=== PATIENT | male | born 1950 | race Caucasian/White ===

== ENCOUNTER 2016-12-23 09:28 | Emergency (ER) | payer OTHER ==
[2016-12-23 09:35] VITALS: BP 120/77
--- NOTE | 2016-12-23 09:59 | ED Physician Documentation ---
PD HPI UPPER EXT INJURY - Stated complaint Stated Complaint: L SHOULDER INJURY - Chief complaint Chief Complaint: Ext Problem - History obtained from History obtained from: Patient - History of Present Illness Location: Left, Shoulder Type of injury: Fall Where injury occurred: Home Timing - onset: Yesterday Timing - details: Abrupt onset, Still present Worsened by: Moving, Palpating Associated symptoms: No: Weakness, Numbness, Swelling Contributing factors: No: Prior ortho surgery Similar symptoms before: Has not had sx before Recently seen: Not recently seen Review of Systems Skin: denies: Rash, Lesions, Abrasion (s), Laceration (s) Musculoskeletal: denies: Neck pain, Back pain Neurologic: denies: Focal weakness, Numbness PD PAST MEDICAL HISTORY - Past Medical History Cardiovascular: High cholesterol Musculoskeletal: None - Past Surgical History Past Surgical History: No - Present Medications Home Medications: Ambulatory Orders Medication Instructions Recorded Confirmed Meds For Sleep 12/23/16 - Allergies Allergies/Adverse Reactions: Allergies Allergy/AdvReac Type Severity Reaction Status Date / Time No Known Drug Allergies Allergy Verified 06/10/15 11:33 - Social History Does the pt smoke?: No Smoking Status: Never smoker Does the pt drink ETOH?: No Does the pt have substance abuse?: No - Immunizations Immunizations are current?: Yes - POLST Patient has POLST: No PD ED PE NORMAL - Vitals Vital signs reviewed: Yes - General General: Alert and oriented X 3, No acute distress, Well developed/nourished - Neck Neck: Supple, no meningeal sign, No bony TTP - Cardiac Cardiac: RRR, No murmur - Respiratory Respiratory: Clear bilaterally - Derm Derm: Normal color, Warm and dry - Extremities Extremities: Other (tender left shoulder at AC area mainly without defomity. Passive stress has some clunkiness concerning for rotator duff injury. Pain with some rotational movements but good strength. ). No: Normal ROM s pain ( pain left shoulder with lifting more than about 30 degrees. ) - Neuro Neuro: No motor deficit, No sensory deficit Results - Vitals Vitals: Vital Signs - 24 hr 12/23/16 09:32 Temperature 36.2 C L Heart Rate 58 L Respiratory 16 Rate Blood Pressure 120/77 O2 Saturation 96 Oxygen O2 Source Room air - Rads (name of study) left shoulder Radiology: Prelim report reviewed, EMP read contemporaneously (no fractures. ) PD MEDICAL DECISION MAKING - ED course Complexity details: reviewed results, considered differential, d/w patient Departure - Departure Disposition: 01 Home, Self Care Clinical Impression: Fall from slip, trip, or stumble Qualifiers: Encounter type: initial encounter Qualified Code(s): W01.0XXA - Fall on same level from slipping, tripping and stumbling without subsequent striking against object, initial encounter Left shoulder strain Qualifiers: Encounter type: initial encounter Qualified Code(s): S46.912A - Strain of unspecified muscle, fascia and tendon at shoulder and upper arm level, left arm , initial encounter Injury of left rotator cuff Qualifiers: Encounter type: initial encounter Qualified Code(s): S46.002A - Unspecified injury of muscle(s) and tendon(s) of the rotator cuff of left shoulder, initial encounter Condition: Stable Record reviewed to determine appropriate education?: Yes Instructions: Rotator Cuff Injury Follow-Up: Jorge Smiley MD [Provider Admit Priv/Credential] - Comments: Limited use of the left shoulder with no overhead reaching, push pull, lifting for at least a week. Light use of the arm at mid level is okay. Gentle range of motion of the shoulder is good to prevent "freezing up" of the shoulder ( adhesions). Tylenol or ibuprofen if needed for pain. Consider using ibuprofen 2-3 tablets twice daily for the next week as an anti-inflammatory and add Tylenol to that if needed for pain. Follow-up with your primary care or orthopedics in about a week for recheck to see if it seems like there is any rotator cuff tear or injury. There are no obvious fractures on x-ray. Discharge Date/Time: 12/23/16 10:50
--- NOTE | 2016-12-23 11:01 | XRAY Preliminary Report ---
Exam: XR SHOULDER 3 VIEW LT IMPRESSION: 1. No acute fracture or dislocation. 2. 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 [facility] SITE ID: [id number]
--- NOTE | 2016-12-23 11:04 | XRAY Report ---
EXAM: LEFT SHOULDER RADIOGRAPHY EXAM DATE: 12/23/2016 10:00 AM. CLINICAL HISTORY: Fell onto a wood pile with left shoulder pain. COMPARISON: None. TECHNIQUE: 3 views. FINDINGS: Bones: Normal. No fracture or bone lesion. Joints: Mild degenerative joint disease of the glenohumeral joint with inferior mild joint space narr owing and early osteophyte formation. Mild acromioclavicular degenerative joint disease as well with small osteophytes. Soft tissues: The visualized hemithorax is unremarkable. No soft tissue swelling. IMPRESSION: 1. No acute fracture or dislocation. 2. 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 [facility] Referring Provider Line: [phone] SITE ID: [id number]
== END 2016-12-23 10:50 | disposition home or self-care (01) ==
LOC: ED 09:28
DX: S46.912A Strain of unspecified muscle, fascia and tendon at shoulder and upper arm level, left arm, initial encounter (principal); S46.002A Unspecified injury of muscle(s) and tendon(s) of the rotator cuff of left shoulder, initial encounter; W01.0XXA Fall on same level from slipping, tripping and stumbling without subsequent striking against object, initial encounter; Y93.89 Activity, other specified; Y92.009 Unspecified place in unspecified non-institutional (private) residence as the place of occurrence of the external cause; E78.00 Pure hypercholesterolemia, unspecified
CPT/HCPCS: 99283

== ENCOUNTER 2017-05-11 17:26 | Emergency (ER) | payer OTHER ==
[2017-05-11 18:28] LABS: BASOPHILS % (AUTO) 0.5 %; EOSINOPHILS # (AUTO) 0.3 10^3/uL (0.0-0.7); EOSINOPHILS % (AUTO) 3.3 %; HGB - HEMOGLOBIN 13.7 g/dL (14.0-18.0); LYMPHOCYTES # (AUTO) 2.8 10^3/uL (1.5-3.5); LYMPHOCYTES % (AUTO) 32.5 %; MEAN CORPUSCULAR HGB CONC 33.4 g/dL (32.0-36.0); MEAN CORPUSCULAR VOLUME 93.1 fL (80.0-94.0); MEAN PLATELET VOLUME 8.3 fL (7.4-11.4); MONOCYTES # (AUTO) 0.9 10^3/uL (0.0-1.0); MONOCYTES % (AUTO) 10.7 %; NEUTROPHILS # (AUTO) 4.6 10^3/uL (1.5-6.6); PLT - PLATELET COUNT 249 10^3/uL (130-450); RED CELL DISTRIBUTION WIDTH 12.7 % (12.0-15.0); WHITE BLOOD COUNT 8.6 x10^3/uL (4.8-10.8)
[2017-05-11 18:36] LABS: ALBUMIN 4.1 g/dL (3.2-5.5); ALBUMIN/GLOBULIN RATIO 1.3 (1.0-2.2); BILIRUBIN,TOTAL 0.5 mg/dL (0.2-1.0); CALCIUM 8.9 mg/dL (8.5-10.3); CREATININE 1.1 mg/dL (0.6-1.2); TOTAL PROTEIN 7.2 g/dL (6.7-8.2)
--- NOTE | 2017-05-11 19:00 | XRAY Report ---
EXAM: CHEST RADIOGRAPHY EXAM DATE: 05/11/2017 06:38 PM. CLINICAL HISTORY: Chest pain. COMPARISON: None. TECHNIQUE: 1 view. FINDINGS: Lungs/Pleura: No focal opacities evident. No pleural effusion. No pneumothorax. Mediastinum: Within exam limitations, the cardiomediastinal contour is normal. Other: Post surgical changes left shoulder. IMPRESSION: No acute findings. [facility] Referring Provider Line: [phone] SITE ID: [id number]
--- NOTE | 2017-05-11 19:08 | ED Physician Documentation ---
PD HPI CHEST PAIN - Stated complaint Stated Complaint: CP - Chief complaint Chief Complaint: Cardiac - History obtained from History obtained from: Patient - History of Present Illness Timing - onset: How many hours ago (5) Timing - onset during: Light activity (walking) Timing - duration: Minutes (30) Timing - details: Abrupt onset Pain level max: 6 Pain level now: 2 Location: Right chest Radiation: Right upper extremity Improved by: Rest Worsened by: Exertion Associated symptoms: No: Shortness of air, Diaphoresis, Nausea, Vomiting, Feeling faint / dizzy, General Weakness, Palpitations, Cough Similar symptoms before: Has not had sx before - Additional information Additional information: also occured last week while on a run. Today while walking. Lasts 30-45 mins at a time. Took baby asa today. doesn't smoke. no HTN. +hyperlipidemia Review of Systems Ten Systems: 10 systems reviewed and negative Constitutional: denies: Fever, Chills Nose: denies: Rhinorrhea / runny nose, Congestion Throat: denies: Sore throat Cardiac: denies: Palpitations Respiratory: denies: Cough, Wheezing : denies: Dysuria Skin: denies: Rash Musculoskeletal: denies: Neck pain, Back pain Neurologic: denies: Focal weakness, Numbness, Headache PD PAST MEDICAL HISTORY - Past Medical History Past Medical History: Yes Cardiovascular: High cholesterol Musculoskeletal: None - Past Surgical History Past Surgical History: No - Present Medications Home Medications: Ambulatory Orders Medication Instructions Recorded Confirmed Meds For Sleep 12/23/16 - Allergies Allergies/Adverse Reactions: Allergies Allergy/AdvReac Type Severity Reaction Status Date / Time No Known Drug Allergies Allergy Verified 06/10/15 11:33 - Social History Does the pt smoke?: No Smoking Status: Never smoker Does the pt drink ETOH?: No Does the pt have substance abuse?: No - Immunizations Immunizations are current?: Yes - POLST Patient has POLST: No PD ED PE NORMAL - Vitals Vital signs reviewed: Yes - General General: Alert and oriented X 3, No acute distress, Well developed/nourished - HEENT HEENT: PERRL, Moist mucous membranes - Neck Neck: Supple, no meningeal sign, No JVD, No bruit - Cardiac Cardiac: RRR, Strong equal pulses - Respiratory Respiratory: No respiratory distress, Clear bilaterally - Abdomen Abdomen: Soft, Non tender, Non distended - Derm Derm: Warm and dry, No rash - Extremities Extremities: No edema, No calf tenderness / cord - Neuro Neuro: Alert and oriented X 3 - Psych Psych: Normal mood, Normal affect Results - Vitals Vitals: Vital Signs - 24 hr 05/11/17 05/11/17 05/11/17 17:39 19:10 19:39 Temperature 36.5 C Heart Rate 68 63 65 Respiratory 18 15 14 Rate Blood Pressure 145/79 H 134/84 H 125/79 O2 Saturation 98 96 96 05/11/17 05/11/17 20:13 20:43 Temperature Heart Rate 70 74 Respiratory 16 16 Rate Blood Pressure 124/84 H 109/76 O2 Saturation 95 93 Oxygen O2 Source Room air - EKG (time done) 1734 Rate: Rate (enter#) (65) Rhythm: NSR [place]: Normal Intervals: Normal OR QRS: Normal Ischemia: Normal ST segments Computer interpretation: Agree with computer 2034 Rate: Rate (enter#) (68) Rhythm: NSR [place]: Normal Intervals: Normal OR QRS: Normal Ischemia: Normal ST segments Computer interpretation: Agree with computer - Labs Labs: Laboratory Tests 05/11/17 05/11/17 05/11/17 18:19 18:19 18:19 WBC 8.6 RBC 4.40 L Hgb 13.7 L Hct 40.9 L MCV 93.1 MCH 31.0 MCHC 33.4 RDW 12.7 Plt Count 249 MPV 8.3 Neut # 4.6 Lymph # 2.8 [place] # 0.9 Eos # 0.3 Baso # 0.0 Absolute Nucleated RBC 0.01 Nucleated RBC % 0.1 Sodium 139 Potassium 4.5 Chloride 105 Carbon Dioxide 25 Anion Gap 9.0 BUN 20 Creatinine 1.1 Estimated GFR (MDRD) 67 L Glucose 94 Calcium 8.9 Total Bilirubin 0.5 AST 22 ALT 24 Alkaline Phosphatase 67 Troponin I 0.35 Total Protein 7.2 Albumin 4.1 Globulin 3.1 Albumin/Globulin Ratio 1.3 Lipase 27 - Rads (name of study) cxr Radiology: Prelim report reviewed, EMP read contemporaneously, See rad report ( normal) PD MEDICAL DECISION MAKING - ED course Complexity details: reviewed results, re-evaluated patient, considered differential (No ST elevation HI, no aortic dissection, no PE, no tension pneumothorax, no aortic aneurysm), d/w patient, d/w family ED course: Patient is a 67-year-old gentleman who presents to the emergency department with a story concerning for accelerating angina, used to occur with running, now occurs with light exertion. Not even a brisk walk today. His troponin is mildly elevated. Started on a heparin drip and will treat as a an STEMI. Discussed the case with Dr. Mckeon 1919, hospitalist at [facility] who graciously accepts in transfer. Patient was also treated with aspirin here. 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 This document was made in part using voice recognition software. While efforts are made to proofread this document, sound alike and grammatical errors may occur. Departure - Departure Disposition: 02 Transfer Acute Care Hosp Clinical Impression: NSTEMI (non-ST elevated myocardial infarction) Condition: Stable Discharge Date/Time: 05/11/17 20:59
[2017-05-11] MEDS ORDERED: ASPIRIN CHEW 81 MG TABLET PO STA (19:14)
[2017-05-11] MEDS ORDERED: HEPARIN 5,000 UNIT/ML VIAL IVP STA (19:23)
[2017-05-11] MEDS ORDERED: HEPARIN 25000UNITS/500ML (D5W) 25,000 UNIT/500 ML BAG IV STA (19:23)
[2017-05-11] MEDS ORDERED: NITROGLYCERIN SL 0.4 MG TABLET SL STA (20:30)
[2017-05-11 20:49] VITALS: BP 109/76
== END 2017-05-11 20:59 | disposition short-term general hospital (02) ==
LOC: ED 17:26
DX: I21.4 Non-ST elevation (NSTEMI) myocardial infarction (principal); E78.00 Pure hypercholesterolemia, unspecified
CPT/HCPCS: 36415; 71045; 80053; 83690; 84484; 85025; 93005; 96365; 96376; 99284; 99285; A9270

== ENCOUNTER 2017-05-11 20:59 | Outpatient (CLI) | payer OTHER | END 2017-05-11 21:00 | disposition short-term general hospital (02) | LOC: EMS 20:59 | PROVIDERS: ATTEND Surgery | DX: I21.4 Non-ST elevation (NSTEMI) myocardial infarction (principal) | CPT/HCPCS: A0425; A0426 ==

== ENCOUNTER 2019-11-09 19:37 | Emergency (ER) | payer OTHER ==
[2019-11-09] MEDS ORDERED: TETANUS/DIPHTHERIA/PERTUSSIS 0.5 ML SYRINGE IM ONE (20:01)
[2019-11-09] MEDS ORDERED: LIDOCAINE-EPINEPH-TETRACAINE 3 ML SYRINGE TOP STA (20:01)
[2019-11-09] MEDS ORDERED: HYDROcod/ACETAM 5/325 MG TABLET PO STA (20:01)
--- NOTE | 2019-11-09 20:33 | ED Physician Documentation ---
PD HPI HEAD INJURY - Stated complaint Stated Complaint: GLF - Chief complaint Chief Complaint: Trauma Hd/Nk - History obtained from History obtained from: Patient, EMS - History of Present Illness Mechanism of head injury: Fell Where head injury occurred: Home Timing - onset: How many minutes ago (20) Pain level max: 6 Pain level now: 6 Location of injury: Right, Front Quality of pain: Pain, Aching, Dull Associated symptoms: Neck pain (states feels sore and stiff.). No: LOC, AMS, Amnesia, Nausea / vomiting Symptoms improve with: Rest Symptoms worsen with: Palpation, Movement Contributing factors: No: Anticoagulated, Intoxicated Recently seen: Not recently seen - Additional information Additional information: Patient states that he was getting off his tractor today when he tripped and fell, landing on the right side of his face, injuring his right hand and head. Has a history of a neck fracture in the past that was surgically repaired. No numbness or tingling. Patient is right-handed. Unsure last tetanus shot Review of Systems Ten Systems: 10 systems reviewed and negative Constitutional: denies: Fever, Chills Eyes: denies: Loss of vision, Decreased vision, Photophobia Ears: denies: Ear pain Nose: denies: Rhinorrhea / runny nose, Congestion Throat: denies: Sore throat Cardiac: denies: Chest pain / pressure, Palpitations Respiratory: denies: Dyspnea, Cough GI: denies: Nausea, Vomiting, Diarrhea : denies: Dysuria Skin: denies: Rash Musculoskeletal: denies: Back pain Neurologic: denies: Focal weakness, Numbness, Seizure, Confused, Altered mental status, LOC PD PAST MEDICAL HISTORY - Past Medical History Cardiovascular: High cholesterol Respiratory: None Neuro: None Endocrine/Autoimmune: None GI: None : None HEENT: Chronic vision loss Psych: Depression Musculoskeletal: None Derm: None - Past Surgical History Past Surgical History: Yes Ortho: Spine surgery Cardiovascular: CABG - Present Medications Home Medications: Ambulatory Orders Medication Instructions Recorded Confirmed Meds For Sleep 12/23/16 Cephalexin [Keflex] 500 mg PO Q6H #28 capsule 11/09/19 HYDROcod/ACETAM 5/325 [[place] 5/325] 1 - 2 ea PO Q6H PRN #14 tablet 11/09/19 - Allergies Allergies/Adverse Reactions: Allergies Allergy/AdvReac Type Severity Reaction Status Date / Time No Known Drug Allergies Allergy Verified 11/09/19 19:51 - Social History Does the pt smoke?: No Smoking Status: Never smoker Does the pt drink ETOH?: Yes Does the pt have substance abuse?: No - Immunizations Immunizations are current?: No Immunizations: TDAP >10years/unknown - POLST Patient has POLST: No PD ED PE NORMAL - Vitals Vital signs reviewed: Yes - General General: Alert and oriented X 3, No acute distress, Well developed/nourished - HEENT HEENT: PERRL, EOMI, Moist mucous membranes, Pharynx benign, Other (Periorbital contusion to the right eye, abrasions over the right cheek and bridge of the nose. Laceration to the right eyebrow.) - Neck Neck: Supple, no meningeal sign, No bony TTP - Cardiac Cardiac: RRR, Strong equal pulses - Respiratory Respiratory: No respiratory distress, Clear bilaterally - Abdomen Abdomen: Soft, Non tender, Non distended - Derm Derm: Warm and dry - Extremities Extremities: Other (Tender to palpation over the dorsum of the right hand, four th and fifth metacarpals with mild ecchymosis and swelling. 2 lacerations on the right third digit, anterior aspect, 1 cm in length.) - Neuro Neuro: Alert and oriented X 3 - Psych Psych: Normal mood, Normal affect Results - Vitals Vitals: Vital Signs - 24 hr 11/09/19 11/09/19 11/09/19 19:47 19:51 21:50 Temperature 37.0 C Heart Rate 70 66 68 Respiratory 14 16 16 Rate Blood Pressure 158/84 H 158/86 H 123/82 H O2 Saturation 100 100 100 11/09/19 11/09/19 22:52 22:55 Temperature Heart Rate 72 68 Respiratory 18 16 Rate Blood Pressure 125/78 121/68 O2 Saturation 100 100 Oxygen O2 Source Room air - Rads (name of study) CT head Radiology: Prelim report reviewed, EMP read contemporaneously, See rad report (No acute abnormality) CT maxillofacial Radiology: Prelim report reviewed, EMP read contemporaneously, See rad report (No acute abnormality) Ct c-spine Radiology: Prelim report reviewed, EMP read contemporaneously, See rad report (No acute abnormality) R hand xray Radiology: Prelim report reviewed, EMP read contemporaneously, See rad report (No acute abnormality) Procedures - Laceration (location) R eye brow Length in cm: 4 Wound type: Into subcut fat, Clean Neurovascular status: Sensory intact, Motor intact, Vascular intact Anesthesia: LET Wound Preparation: Irrigated copiously NS, Wound explored, To the base. No: FB identified, FB removed Skin layer closure: Nylon, Interrupted, Sutures - enter # (5) Other: Patient tolerated well, No complications, Neurovascular intact, Tetanus UTD R 3rd digit Length in cm: 2 Wound type: Linear, Flap, Superficial, Clean Neurovascular status: Sensory intact, Motor intact, Vascular intact Tendon involvement: Tendon intact Anesthesia: Lidocaine 1% Wound Preparation: Irrigated copiously NS, Wound explored, To the base Skin layer closure: Nylon, Interrupted, Size #-0 - enter number (5), Sutures - enter # (2) nasal bridge Length in cm: 2 Wound type: Linear, Superficial, Clean Neurovascular status: Sensory intact, Motor intact, Vascular intact Anesthesia: LET Wound Preparation: Irrigated copiously NS, Wound explored, To the base Skin layer closure: Dermabond Other: Patient tolerated well, No complications, Neurovascular intact, Dressing applied, Tetanus booster given Complexity: Simple PD MEDICAL DECISION MAKING - ED course Complexity details: reviewed results, re-evaluated patient, considered differential, d/w patient, d/w family ED course: 69-year-old male status post a fall today no acute findings on CT scans or x- rays. Laceration was repaired with a combination of Dermabond and sutures. Remainder of the abrasions were cleansed and bandaged. Tdap given. We will provide pain medication and Keflex for home. Patient is ambulating well. Warnings of infection and instructions on wound care given at bedside. Also counseled on how to minimize scarring. Patient counseled regarding signs and symptoms for which I believe and urgent re-evaluation would be necessary. Patient with good understanding of and agreement to plan and is comfortable going home at this time This document was made in part using voice recognition software. While efforts are made to proofread this document, sound alike and grammatical errors may occur. Departure - Departure Disposition: 01 Home, Self Care Clinical Impression: Abrasion Fall Qualifiers: Encounter type: initial encounter Qualified Code(s): W19.XXXA - Unspecified fall, initial encounter Head injury Qualifiers: Encounter type: initial encounter Qualified Code(s): S09.90XA - Unspecified injury of head, initial encounter Eyebrow laceration Qualifiers: Encounter type: initial encounter Laterality: right Qualified Code(s): S01.111A - Laceration without foreign body of right eyelid and periocular area, initial encounter Nasal contusion Qualifiers: Encounter type: initial encounter Qualified Code(s): S00.33XA - Contusion of nose, initial encounter Contusion of right hand Qualifiers: Encounter type: initial encounter Qualified Code(s): S60.221A - Contusion of right hand, initial encounter Finger laceration Qualifiers: Encounter type: initial encounter Finger: middle finger Damage to nail status: without damage Foreign body presence: without foreign body Laterality: right Qualified Code(s): S61.212A - Laceration without foreign body of right middle finger without damage to nail, initial encounter Condition: Good Instructions: ED Head Injury Closed, ED Laceration Hand, ED Laceration Facial Skin Glue, ED Laceration Facial Sutr Tape Follow-Up: KENDRA BOWLING MD [Primary Care Provider] - Within 1 week Prescriptions: Cephalexin [Keflex] 500 mg PO Q6H #28 capsule HYDROcod/ACETAM 5/325 [[place] 5/325] 1 - 2 ea PO Q6H PRN #14 tablet PRN Reason: Pain Comments: Return if you worsen. Take all antibiotics until gone. The sutures should be removed in approximately 7 days with your doctor. The ones on the finger may need to be left slightly longer than this. You can remove the splint after approximately 3 days. There are no acute findings on your CT scans or x-rays tonight. Return if you notice redness, swelling or drainage from the wound. Do not drink alcohol or drive while on narcotic pain medicine. Note that many narcotic pain relievers also contain tylenol/acetaminophen. Please ensure that your total dose of acetaminophen from all sources does not exceed 3 grams (3000mg) per day. You may constipated on this medication, take a stool softener such as "Colace" twice a day while you are on it. Also recommend a axml-dxh-yrzhvuq laxative such as senna or MiraLAX any day that you do not have a bowel movement. If you received narcotic pain medication in the emergency department, do not dr chairez or operate machinery for the next 24 hours. Discharge Date/Time: 11/09/19 22:55
--- NOTE | 2019-11-09 22:16 | CT Report ---
PROCEDURE: CERVICAL SPINE WO INDICATIONS: fall, neck pain TECHNIQUE: Noncontrast 3 mm thick sections acquired from the skull base to the T4 level. Sagittal and coronal r eformats were then constructed. For radiation dose reduction, the following was used: automated exp osure control, adjustment of mA and/or kV according to patient size. COMPARISON: None. FINDINGS: Image quality: Excellent. Bones: No acute fractures or dislocations. Visualized superior ribs are intact. Prior right-sided C3-C6 fixation plate placement along the lamina through these levels of the cervical spine. No new tr auma is superimposed. Soft tissues: Prevertebral soft tissues are normal in thickness. No paravertebral hematomas. No ap ical pneumothoraces. IMPRESSION: Prior lamina plate fixation C3-C6 but no new trauma found. No sign of posttraumatic subluxation. Reviewed by: Jonnathan Browne MD on 11/09/2019 10:15 PM PDT Approved by: Jonnathan Browne MD on 11/09/2019 10:15 PM PDT Station ID: [id number]
--- NOTE | 2019-11-09 22:19 | XRAY Report ---
PROCEDURE: Hand 3 View RT INDICATIONS: fall, R hand pain TECHNIQUE: 4 views of the hand(s) acquired. COMPARISON: None FINDINGS: Bones: No fractures or dislocations. No suspicious bony lesions. Soft tissues: No suspicious soft tissue calcifications. IMPRESSION: Soft tissue swelling is noted over the dorsum of the hand. This is most prominent near the fourth and fifth metacarpal bones. The fifth distal metacarpal shows morphology of probable old trauma and heal ing. No acute osseous trauma found. Reviewed by: Jonnathan Browne MD on 11/09/2019 10:18 PM PDT Approved by: Jonnathan Browne MD on 11/09/2019 10:18 PM PDT Station ID: [id number]
--- NOTE | 2019-11-09 22:21 | CT Report ---
PROCEDURE: HEAD WO INDICATIONS: fall, R facial pain TECHNIQUE: Noncontrast 4.5 mm thick angled axial sections acquired from the foramen magnum to the vertex. For r adiation dose reduction, the following was used: automated exposure control, adjustment of mA and/or kV according to patient size. COMPARISON: Cervical spine CT scanning same day.. FINDINGS: Image quality: Excellent. CSF spaces: Basal cisterns are patent. No extra-axial fluid collections. Ventricles are normal in size and shape. Brain: No midline shift. No intracranial masses or hemorrhage. [place]-white matter interface is norm al. Skull and face: Calvarium and visualized facial bones are intact, without suspicious lesions. Sinuses: Visualized sinuses and mastoids are clear. IMPRESSION: No acute trauma found. Reviewed by: Jonnathan Browne MD on 11/09/2019 10:19 PM PDT Approved by: Jonnathan Browne MD on 11/09/2019 10:19 PM PDT Station ID: [id number]
--- NOTE | 2019-11-09 22:22 | CT Report ---
PROCEDURE: MAXILLOFACIAL WO INDICATIONS: fall, R facial pain TECHNIQUE: Noncontrast 1.5 mm thick axial images acquired from the mandible through the frontal sinuses, with co mariajose and sagittal reformatting. For radiation dose reduction, the following was used: automated ex posure control, adjustment of mA and/or kV according to patient size. COMPARISON: Head CT same day.. FINDINGS: Image quality: Excellent. Bones and teeth: Orbital sanford are intact. Sinus sanford show no fracture or deformity. Nasal bones and septum are intact. Visualized portions of the mandible demonstrate no fractures or subluxation. Zygomatic arches are intact. Pterygoid plates are intact. Visualized portions of the skull base an d auditory canals are intact. Sinuses: Paranasal sinuses are aerated, without fluid levels, mucosal thickening, or mucoceles. [place] air cells are aerated. Soft tissues: No edema, masses, or fluid collections. What appears to be a laceration over the righ t frontal region is noted without underlying fracture. No enlarged lymph nodes. No soft tissue lacer ations or debris. Vascular: Visualized vascular structures appear normal in the absence of contrast. Bony vascular fo ramina and canals are intact. IMPRESSION: Right frontal soft tissue laceration, without underlying fracture or foreign body. No fa cial bone fracture is seen. No abnormal fluid within the paranasal sinuses is found. Reviewed by: Jonnathan Browne MD on 11/09/2019 10:21 PM PDT Approved by: Jonnathan Browne MD on 11/09/2019 10:21 PM PDT Station ID: [id number]
[2019-11-09] MEDS ORDERED: LIDOCAINE 1% 2 ML VIAL ONE (22:29)
[2019-11-09] MEDS ORDERED: cephALEXin 250 MG CAPSULE PO STA (22:36)
[2019-11-09] MEDS ORDERED: BACITRACIN ZINC OINT 1 PACKET TOP STA (22:37)
[2019-11-09 22:56] VITALS: BP 121/68
== END 2019-11-09 22:55 | disposition home or self-care (01) ==
LOC: ED 19:37
DX: S09.90XA Unspecified injury of head, initial encounter (principal); S01.111A Laceration without foreign body of right eyelid and periocular area, initial encounter; S61.212A Laceration without foreign body of right middle finger without damage to nail, initial encounter; S01.21XA Laceration without foreign body of nose, initial encounter; S00.81XA Abrasion of other part of head, initial encounter; S00.33XA Contusion of nose, initial encounter; S60.221A Contusion of right hand, initial encounter; M54.2 Cervicalgia; W17.89XA Other fall from one level to another, initial encounter; Y93.89 Activity, other specified; Y92.007 Garden or yard of unspecified non-institutional (private) residence as the place of occurrence of the external cause; Z23 Encounter for immunization
CPT/HCPCS: 12001; 12014; 70450; 70486; 72125; 73130; 90471; 90715; 99284; A9270

== ENCOUNTER 2020-06-08 15:16 | Emergency (ER) | payer OTHER ==
--- OUTSIDE RECORDS SUMMARY | 2020-06-08 15:33 | EXTERNAL MEDICAL SUMMARY RPT | Continuity of Care Document ---
:1950 Demographics Phone Unavailable Preferred Language Unknown Marital Status Unknown Hindu Affiliation Unknown Race Unknown Ethnic Group Unknown Author Organization [facility] Address [address] [id number] Phone Social History date description facility [phone]
[2020-06-08] MEDS ORDERED: BUFFERED LIDOCAINE 10 ML SYRINGE SUBQ STA ×2 (15:37→19:16)
[2020-06-08] MEDS ORDERED: HYDROmorphone 1 MG/ML CARPUJECT IM STA ×2 (15:40→20:39)
--- NOTE | 2020-06-08 15:41 | ED Physician Documentation ---
History of Present Illness - Stated complaint Stated Complaint: LT HAND LAC - Chief complaint Chief Complaint: Laceration - Additonal information Additional information: 70-year-old male presents to the emergency department for evaluation of a left hand injury.He was using Velez when his hand slipped and he presents to the emergency department with a large tissue defect on the ulnar side of the palm distal tip of the small finger ring finger and thumb. He is actively bleeding. Patient is right-hand dominant. Tetanus is up-to-date. Review of Systems Constitutional: reports: Reviewed and negative Eyes: reports: Reviewed and negative Throat: reports: Reviewed and negative Cardiac: reports: Reviewed and negative Respiratory: reports: Reviewed and negative GI: reports: Reviewed and negative : reports: Reviewed and negative Skin: reports: Laceration (s) (Left hand) PD PAST MEDICAL HISTORY - Past Medical History Cardiovascular: High cholesterol Respiratory: None Neuro: None Endocrine/Autoimmune: None GI: None : None HEENT: Chronic vision loss Psych: Depression Musculoskeletal: None Derm: None - Past Surgical History Past Surgical History: Yes Ortho: Spine surgery Cardiovascular: CABG - Present Medications Home Medications: Ambulatory Orders Medication Instructions Recorded Confirmed Meds For Sleep 12/23/16 HYDROcod/ACETAM 5/325 [[place] 5/325] 1 - 2 ea PO Q6H PRN #14 tablet 11/09/19 cephALEXin [Keflex] 500 mg PO Q6H #28 capsule 11/09/19 - Allergies Allergies/Adverse Reactions: Allergies Allergy/AdvReac Type Severity Reaction Status Date / Time No Known Drug Allergies Allergy Verified 06/08/20 15:21 - Social History Does the pt smoke?: No Smoking Status: Never smoker Does the pt drink ETOH?: Yes Does the pt have substance abuse?: No - Immunizations Immunizations are current?: No Immunizations: TDAP >10years/unknown - POLST Patient has POLST: No PD ED PE EXPANDED - General General: Alert, In Pain, In distress - Extremities Extremities: Left hand (Large avulsed tissue defect left hand ulnar side of palm with partial tip amputation left small finger ring finger and thumb. Pt able to make a gull grasp with the left hand, though weak on the left small finger), Other (FInger sats: thumb 95; Index 97; middle 97; ring 95; small 94) Results - Vitals Vitals: Vital Signs - 24 hr 06/08/20 06/08/20 15:22 17:58 Temperature 36.7 C 37.1 C Heart Rate 68 62 Respiratory 18 12 Rate Blood Pressure 147/86 H 131/75 H O2 Saturation 96 97 Oxygen O2 Source Room air - Labs Labs: Laboratory Tests 06/08/20 16:29 Nasal Adenovirus (PCR) NOT DETECTED Nasal B. parapertussis DNA (PCR) NOT DETECTED Nasal Coronavir 229E PCR NOT DETECTED Nasal Coronavir HKU1 PCR NOT DETECTED Nasal Coronavir NL63 PCR NOT DETECTED Nasal Coronavir OC43 PCR NOT DETECTED Nasal Enterovir/Rhinovir PCR NOT DETECTED Nasal Influenza B PCR NOT DETECTED Nasal Influenza A PCR NOT DETECTED Nasal Parainfluen 1 PCR NOT DETECTED Nasal Parainfluen 2 PCR NOT DETECTED Nasal Parainfluen 3 PCR NOT DETECTED Nasal Parainfluen 4 PCR NOT DETECTED Nasal RSV (PCR) NOT DETECTED Nasal B.pertussis DNA PCR NOT DETECTED Nasal C.pneumoniae (PCR) NOT DETECTED Jamal Human Metapneumo PCR NOT DETECTED Nasal M.pneumoniae (PCR) NOT DETECTED Nasal SARS-CoV-2 (PCR) NOT DETECTED - Rads (name of study) left hand Radiology: Final report received (Mildly displaced comminuted fracture and/or partial amputation of the tuft of the fifth distal phalanx along the ulnar aspect) Procedures - Laceration (location) finger lacerations Length in cm: 7 Wound type: Irregular, Into subcut fat, Into muscle, Contaminated, Exposure of bone, Exposure of cartilage Neurovascular status: Sensory intact, Motor intact Tendon involvement: Tendon intact Anesthesia: LET Wound preparation: Chlorhexadine, Debrided extensively, Wound explored Skin layer closure: Nylon, Interrupted, Sutures - enter # (4) Other: Patient tolerated well, Tetanus UTD, Other (Multiple lacerations of the small finger thumb index ring and middle finger. Most of these are superficial though there is a partial tip amputation of the fifth phalanx. Wounds approximated) PD MEDICAL DECISION MAKING - ED course Complexity details: reviewed results, re-evaluated patient, considered differential, d/w patient ED course: 70-year-old male presents emergency department with a large left hand tissue defect after using a Velez this afternoon. The palmar defect is approximately 4 x 7 cm with tissue loss down to the muscle. This will not be able to be closed by primary intention. He does have some associated finger lacerations as well as a tuft fracture of the distal fifth phalanx.. I have given this gentleman ceftriaxone here in the emergency department. However given the large tissue defect I did speak with hand surgery at [facility] and they declined to see the patient and recommended that I speak to [facility] for further evaluation. 184: Hand surgeon on-call at [facility] Dr. Stoddard has requested the patient be transferred for further evaluation of the palm defect. He is requesting that we attempt partial closure of the distal fingertip lacerations that include a partial tip amputation of the small finger. I did spend a fair amount of time at the bedside approximating these wounds. Patient has been given ceftriaxone and will be transferred to [facility] via BLS in the emergency department. Patient's is appraised of the situation. Appropriate COBRA paperwork completed. Departure - Departure Disposition: 02 Transfer Acute Care Hosp Clinical Impression: Defect of skin of hand Laceration of hand with complication Qualifiers: Encounter type: initial encounter Laterality: left Qualified Code(s): S61.412A - Laceration without foreign body of left hand, initial encounter
--- NOTE | 2020-06-08 16:25 | XRAY Report ---
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 COMPARISON: None. FINDINGS: Bones: There is loss of bone stock at the ulnar aspect of the fifth distal phalangeal corinne that may represent a displaced fracture or partial amputation. Soft tissues: Skin irregularity is seen at the ulnar aspect of the second through fourth fingers dist ally and along the ulnar aspect of the fifth finger, compatible with reported soft tissue lacerations . No definite radiopaque foreign body is seen. IMPRESSION: 1. Skin irregularity involving multiple fingers is compatible with reported lacerations. 2. Mildly displaced comminuted fracture and/or partial amputation of the tuft of the fifth distal ph alanx along the ulnar aspect. Osseous structures otherwise appear to be intact. Reviewed by: Antione Lim MD on 06/08/2020 4:23 PM PDT Approved by: Antione Lim MD on 06/08/2020 4:23 PM PDT Station ID: [id number]
[2020-06-08 17:30] LABS: B. PARAPERTUSSIS- RESP PCR PAN NOT DETECTED; B. PERTUSSIS- RESP PCR PANEL NOT DETECTED; C. PNEUMONIAE- RESP PCR PANEL NOT DETECTED; CORONAVIRUS 229E-RESP PCR NOT DETECTED; CORONAVIRUS HKU1-RESP PCR NOT DETECTED; CORONAVIRUS NL63-RESP PCR NOT DETECTED; CORONAVIRUS OC43-RESP PCR NOT DETECTED; HUMAN METAPNEUMOVIRUS NOT DETECTED; INFLUENZA A- RESP PCR PANEL NOT DETECTED; INFLUENZA B - RESP PCR PANEL NOT DETECTED; M. PNEUMONIAE- RESP PCR PANEL NOT DETECTED; PARAINFLUENZA VIRUS 1 NOT DETECTED; PARAINFLUENZA VIRUS 2 NOT DETECTED; PARAINFLUENZA VIRUS 3 NOT DETECTED; PARAINFLUENZA VIRUS 4 NOT DETECTED; RHINOVIRUS/ENTEROVIRUS NOT DETECTED; RSV- RESP PCR PANEL NOT DETECTED; SARS-CoV-2 -RESP PCR PANEL NOT DETECTED
[2020-06-08 17:59] VITALS: BP 131/75
[2020-06-08] MEDS ORDERED: cefTRIAXone 1 GM VIAL IM STA (18:01)
[2020-06-08] MEDS ORDERED: LIDOCAINE 1% 2 ML VIAL MC ONE (18:01)
[2020-06-08] MEDS ORDERED: BACITRACIN ZINC OINT 1 PACKET TOP STA (19:17)
[2020-06-08] MEDS ORDERED: LIDOCAINE-MPF 2% 5 ML VIAL SUBQ STA (19:21)
== END 2020-06-08 20:57 | disposition short-term general hospital (02) ==
LOC: ED 15:16
DX: S66.892A Other injury of other specified muscles, fascia and tendons at wrist and hand level, left hand, initial encounter (principal); S61.412A Laceration without foreign body of left hand, initial encounter; S68.127A Partial traumatic metacarpophalangeal amputation of left little finger, initial encounter; W29.8XXA Contact with other powered hand tools and household machinery, initial encounter; Y93.89 Activity, other specified; S61.217A Laceration without foreign body of left little finger without damage to nail, initial encounter; S61.012A Laceration without foreign body of left thumb without damage to nail, initial encounter; S61.211A Laceration without foreign body of left index finger without damage to nail, initial encounter; S61.213A Laceration without foreign body of left middle finger without damage to nail, initial encounter; Z20.822 Contact with and (suspected) exposure to COVID-19
CPT/HCPCS: 0202U; 13132; 73130; 96372; 99283; 99285; A9270; J1170

== ENCOUNTER 2022-04-11 19:38 | Emergency (ER) | payer MEDICARE, OTHER ==
[2022-04-11] MEDS ORDERED: ASPIRIN CHEW 81 MG TABLET PO STA (19:58)
--- NOTE | 2022-04-11 20:05 | ED Physician Documentation ---
History of Present Illness - Stated complaint Stated Complaint: CHEST PX - Chief complaint Chief Complaint: Cardiac - Additonal information Additional information: 72-year-old male presents to the emergency department for evaluation of chest pain/angina. Reports that he was running this afternoon and pushing himself harder than he typically would. About 6 PM he began to have seeing some right- sided chest pain and pressure. He stopped running. [place] that his heart rate was about 142. Soon as he stopped running the chest pain dissipated. He rested a moment then began running again and the chest pain reoccurred. Chest pain was described as pressure like, nonradiating. No associated nausea. Patient does have a history of an N STEMI in 2018 for which he was initially seen here and then transferred to [facility]. Patient reports to me that he underwent a CABG 2 vessel which included the LAD. Currently taking aspirin and Wellbutrin but is not on a beta-jia Or blood pressure medication for hypertension. Non-smoker Review of Systems Cardiac: reports: Chest pain / pressure PD PAST MEDICAL HISTORY - Past Medical History Cardiovascular: High cholesterol Respiratory: None Neuro: None Endocrine/Autoimmune: None GI: None : None HEENT: Chronic vision loss Psych: Depression Musculoskeletal: None Derm: None - Past Surgical History Past Surgical History: Yes Ortho: Spine surgery Cardiovascular: CABG - Present Medications Home Medications: Ambulatory Orders Medication Instructions Recorded Confirmed Aspirin Chewable [St Ke 81 mg PO DAILY 04/11/22 04/11/22 Aspirin] Atorvastatin Calcium 40 mg PO HS 04/11/22 04/11/22 Magnesium 500 mg PO HS 04/11/22 04/11/22 Mirtazapine 30 mg PO HS 04/11/22 04/11/22 buPROPion HCl [Bupropion Xl] 450 mg PO DAILY 04/11/22 04/11/22 - Allergies Allergies/Adverse Reactions: Allergies Allergy/AdvReac Type Severity Reaction Status Date / Time No Known Drug Allergies Allergy Verified 04/11/22 19:43 - Social History Does the pt smoke?: No Smoking Status: Never smoker Does the pt drink ETOH?: Yes Does the pt have substance abuse?: No - Immunizations Immunizations are current?: No Immunizations: TDAP >10years/unknown - POLST Patient has POLST: No PD ED PE NORMAL - General General: Alert and oriented X 3, No acute distress, Well developed/nourished - Neck Neck: Supple, no meningeal sign - Cardiac Cardiac: RRR, No murmur, Strong equal pulses - Respiratory Respiratory: No respiratory distress, Clear bilaterally - Abdomen Abdomen: Normal bowel sounds, Soft - Derm Derm: Normal color, Warm and dry, No rash - Extremities Extremities: No deformity, No tenderness to palpate - Neuro Neuro: Alert and oriented X 3, 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 No: Prolonged QT QRS: Normal Ischemia: Normal ST segments Compare to prior EKG: Unchanged from prior EKG Computer interpretation: Agree with computer - Labs Labs: Laboratory Tests 04/11/22 04/11/22 04/11/22 20:00 20:00 20:00 WBC 11.3 H RBC 4.28 L Hgb 13.6 L Hct 41.1 L MCV 96.0 H MCH 31.8 H MCHC 33.1 RDW 12.4 Plt Count 209 MPV 10.6 Neut # (Auto) 8.6 H Lymph # (Auto) 1.7 [place] # (Auto) 0.9 Eos # (Auto) 0.1 Baso # (Auto) 0.0 Absolute Nucleated RBC 0.00 Nucleated RBC % 0.0 Sodium 140 Potassium 4.7 Chloride 100 L Carbon Dioxide 26 Anion Gap 14.0 H BUN 21 H Creatinine 1.5 H Estimated GFR (MDRD) 46 L Glucose 100 Calcium 10.0 Total Bilirubin 0.9 AST 31 ALT 28 Alkaline Phosphatase 59 Troponin I High Sens 6.5 Total Protein 7.1 Albumin 4.0 Globulin 3.1 Albumin/Globulin Ratio 1.3 Lipase 32 - Rads (name of study) cxr Radiology: EMP read indepedently (No acute cardiopulmonary abnormalities) PD Medical Decision Making - ED course Complexity details: reviewed results, re-evaluated patient, considered differential, d/w patient, d/w family ED course: 72-year-old male presents emergency department for evaluation of chest pain. He does have a history of an NSTEMI status post two-vessel CABG in 2018. Currently taking aspirin only. He is not on any antihypertensives or beta-blockers. The patient was running this evening, doing a more strenuous run than typical when he developed some right-sided chest pain and pressure without radiation. No nausea. When he stopped running the chest pain improved. He began to run again and the chest pain began. Given the past medical history and these symptoms this is clinically consistent with an angina. Here in the emergency department patient's initial EKG is nonischemic and per my interpretation unchanged from the 2018 results. We did obtain a CBC and electrolytes and per my interpretation no acute worrisome findings. I do note a very mildly elevated creatinine which I believe may be related to some dehydration. For this I repleted the patient with 1 L of crystalloid here in the ER. The patient arrived to the emergency department about 2 hours after the onset of chest pain. His initial troponin is negative. We will obtain a 4-hour delta. If this is negative he is likely stable for discharge home. I discussed with the patient and his that clinically his symptoms are consistent with angina. He is affiliated with [facility] [place] [facility] and is currently scheduled for an echo and stress test upcoming. However I have advised the patient and his to discuss this ED visit with their enamel sprayer as he may benefit from a sooner stress test for consideration of repeat angiogram if necessary. Patient will be signed out to my nighttime colleague to follow-up on the second troponin. Assuming that this is also a negative value he will be discharged home with the usual emergent return precautions discussed for chest pain/angina Departure - Departure Clinical Impression: Chest pain Qualifiers: Chest pain type: chest pain due to myocardial ischemia Ischemic chest pain type: unspecified angina pectoris type Qualified Code(s): I25.9 - Chronic ischemic heart disease, unspecified Condition: Serious Record reviewed to determine appropriate education?: Yes Instructions: Angina Dc
[2022-04-11 20:07] LABS: BASOPHILS % (AUTO) 0.3 %; EOSINOPHILS # (AUTO) 0.1 10^3/uL (0.0-0.7); EOSINOPHILS % (AUTO) 0.5 %; HCT - HEMATOCRIT 41.1 % (42.0-52.0); HGB - HEMOGLOBIN 13.6 g/dL (14.0-18.0); LYMPHOCYTES # (AUTO) 1.7 10^3/uL (1.5-3.5); MEAN CORPUSCULAR HEMOGLOBIN 31.8 pg (27.0-31.0); MEAN CORPUSCULAR HGB CONC 33.1 g/dL (32.0-36.0); MEAN PLATELET VOLUME 10.6 fL (7.4-11.4); MONOCYTES # (AUTO) 0.9 10^3/uL (0.0-1.0); MONOCYTES % (AUTO) 8.1 %; NEUTROPHILS # (AUTO) 8.6 10^3/uL (1.5-6.6); NEUTROPHILS % (AUTO) 75.7 %; PLT - PLATELET COUNT 209 10^3/uL (130-450); RED BLOOD COUNT 4.28 10^6/uL (4.70-6.10); RED CELL DISTRIBUTION WIDTH 12.4 % (12.0-15.0); WHITE BLOOD COUNT 11.3 x10^3/uL (4.8-10.8)
[2022-04-11 20:21] LABS: ALBUMIN/GLOBULIN RATIO 1.3 (1.0-2.2); BILIRUBIN,TOTAL 0.9 mg/dL (0.2-1.0); CREATININE 1.5 mg/dL (0.6-1.2); POTASSIUM 4.7 mmol/L (3.5-5.0); TOTAL PROTEIN 7.1 g/dL (6.7-8.2)
[2022-04-11] MEDS ORDERED: SODIUM CHLORIDE 0.9% 1,000 ML IV STA (20:34)
--- NOTE | 2022-04-11 20:57 | XRAY Report ---
PROCEDURE: Chest 1 View X-Ray INDICATIONS: Chest pain TECHNIQUE: One view of the chest was acquired. COMPARISON: Chest x-ray 05/11/2017. FINDINGS: Surgical changes and devices: Postsurgical changes demonstrated in the mediastinum with multiple med arcelia sternotomy wires. There is disruption of the superior wire with a curvilinear metallic fragment p rojecting over the left hemithorax. Lungs and pleura: No pleural effusions or pneumothorax. Lungs are clear. Mediastinum: Mediastinal contours appear normal. Heart size is normal. Bones and chest wall: No suspicious bony lesions. Overlying soft tissues appear unremarkable. IMPRESSION: 1. No acute cardiopulmonary disease. 2. Disruption of the superior median sternotomy wire with a curvilinear metallic fragment projecting over the left hemithorax. Findings are of indeterminate acuity and correlation is recommended clinica lly. Reviewed by: Jacinto Cheatham MD on 04/11/2022 8:56 PM PST Approved by: Jacinto Cheatham MD on 04/11/2022 8:56 PM PST Station ID: [id number]
[2022-04-11 22:41] VITALS: BP 157/68
--- NOTE | 2022-04-19 11:23 | ED Physician Documentation ---
ED Addendum - Addendum Addendum: 04/19/22 11:19 I received signout on this patient from Dee More NP. Please see her note for detailed H&P. Patient presented to the emergency department on this visit with chief complaint of chest discomfort, which had resolved prior to the handoff I received. He has had a cardiac-oriented work-up thus far including EKG, chest x-ray, blood tests. There were no concerning or diagnostic findings on these tests, and his high-sensitivity troponin is normal. At the time of the signout I received, the plan is to obtain a 2-hour repeat troponin and discharge if this is unremarkable and patient remains asymptomatic. The repeat troponin has no significant change from the previous, and remains within normal range. I discussed the results of this second test with the patient, and he is in no apparent/acute distress, reports that he is asymptomatic. 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
== END 2022-04-11 22:56 | disposition home or self-care (01) ==
LOC: ED 19:38
DX: I20.9 Angina pectoris, unspecified (principal); I25.9 Chronic ischemic heart disease, unspecified
CPT/HCPCS: 36415; 71045; 80053; 83690; 84484; 85025; 93005; 96360; 99284; A9270

== ENCOUNTER 2023-03-25 18:08 | Emergency (ER) | payer MEDICARE, OTHER ==
[2023-03-25 18:17] VITALS: O2SAT 98
[2023-03-25] MEDS ORDERED: BUFFERED LIDOCAINE 10 ML SYRINGE SUBQ STA (18:23)
--- NOTE | 2023-03-25 18:23 | ED Physician Documentation ---
PD HPI UPPER EXT INJURY - Stated complaint Stated Complaint: LT HAND LAC - Chief complaint Chief Complaint: Laceration - History obtained from History obtained from: Patient (72-year-old gentleman with up-to-date tetanus status cut his left third finger on a band saw just prior to arrival. No other injuries.) PD PAST MEDICAL HISTORY - Past Medical History Past Medical History: Yes Cardiovascular: High cholesterol Respiratory: None Neuro: None Endocrine/Autoimmune: None GI: None : None HEENT: Chronic vision loss, Chronic hearing loss Psych: Depression Musculoskeletal: None Derm: None - Past Surgical History Past Surgical History: Yes Ortho: Spine surgery Cardiovascular: CABG - Present Medications Home Medications: Ambulatory Orders Medication Instructions Recorded Confirmed Aspirin Chewable [St Ke 81 mg PO DAILY 04/11/22 04/11/22 Aspirin] Atorvastatin Calcium 40 mg PO HS 04/11/22 04/11/22 Magnesium 500 mg PO HS 04/11/22 04/11/22 Mirtazapine 30 mg PO HS 04/11/22 04/11/22 buPROPion HCL [Bupropion Xl] 450 mg PO DAILY 04/11/22 04/11/22 - Allergies Allergies/Adverse Reactions: Allergies Allergy/AdvReac Type Severity Reaction Status Date / Time No Known Drug Allergies Allergy Verified 04/11/22 19:43 - Social History Does the pt smoke?: No Smoking Status: Never smoker Does the pt drink ETOH?: Yes Does the pt have substance abuse?: No - Immunizations Immunizations are current?: No Immunizations: TDAP >10years/unknown - POLST Patient has POLST: No PD ED PE NORMAL - Vitals Vital signs reviewed: Yes - General General: Alert and oriented X 3, No acute distress - Extremities Extremities: Other (Shallow laceration on the distal dorsum of the left third finger over the PIP without bony involvement, distal neurovascular compromise, or limited range of motion.) - Neuro Neuro: Alert and oriented X 3, Normal speech Results - Vitals Vitals: Vital Signs - 24 hr 03/25/23 18:12 Temperature 36 C L Heart Rate 62 Respiratory 16 Rate Blood Pressure 128/72 O2 Saturation 98 Oxygen O2 Source Room air Procedures - Laceration (location) Left third finger Length in cm: 3 Wound type: Curved, Superficial Neurovascular status: Sensory intact, Motor intact Anesthesia: Lidocaine 1%, With bicarb (Digital block with excellent anesthesia) Wound preparation: Hibiclens, Irrigated copiously NS Skin layer closure: Nylon, Size #-0 - enter number (4-0), Sutures - enter # (6) Other: Patient tolerated well, No complications, Neurovascular intact, Tetanus UTD Departure - Departure Disposition: 01 Home, Self Care Clinical Impression: Laceration of finger Qualifiers: Encounter type: initial encounter Finger: middle finger Damage to nail status: without damage Foreign body presence: without foreign body Laterality: left Qualified Code(s): S61.213A - Laceration without foreign body of left middle finger without damage to nail, initial encounter Condition: Good Record reviewed to determine appropriate education?: Yes Instructions: ED Laceration Hand Comments: Come back for any signs of infection which would include: Redness, swelling, drainage, increased pain, or fevers. You can wash it soap and water. Keep it covered and moist with bacitracin o intment which is available over the counter; avoid neosporin. Follow-up with your physician in about 14 days for suture removal. Forms: PCP List
[2023-03-25 19:02] VITALS: BP 124/70
== END 2023-03-25 18:54 | disposition home or self-care (01) ==
LOC: ED 18:08
DX: S61.213A Laceration without foreign body of left middle finger without damage to nail, initial encounter (principal); W31.2XXA Contact with powered woodworking and forming machines, initial encounter
CPT/HCPCS: 12002; 99282

== ENCOUNTER 2023-04-09 15:57 | Emergency (ER) | payer MEDICARE, OTHER ==
[2023-04-09 16:18] VITALS: BP 136/76; O2SAT 100
--- NOTE | 2023-04-09 16:28 | ED Physician Documentation ---
PD HPI WOUND RECHECK - Stated complaint Stated Complaint: REMOVE STITCHES - Chief complaint Chief Complaint: Laceration - Histroy obtained from History obtained from: Patient - History of Present Illness Pain level max: 0 Pain level now: 0 Associated symptoms: No: Fever, Redness, Swelling, Drainage, Pain - Additional information Additional information: 73-year-old male presents to the emergency department with sutures to the left hand. Here for removal. Placed approximately 12 days ago. No complaints. No redness, drainage or swelling. Review of Systems Constitutional: denies: Fever PD PAST MEDICAL HISTORY - Past Medical History Cardiovascular: High cholesterol Respiratory: None Neuro: None Endocrine/Autoimmune: None GI: None : None HEENT: Chronic vision loss, Chronic hearing loss Psych: Depression Musculoskeletal: None Derm: None - Past Surgical History Past Surgical History: Yes Ortho: Spine surgery Cardiovascular: CABG - Present Medications Home Medications: Ambulatory Orders Medication Instructions Recorded Confirmed Aspirin Chewable [St Ke 81 mg PO DAILY 04/11/22 04/11/22 Aspirin] Atorvastatin Calcium 40 mg PO HS 04/11/22 04/11/22 Magnesium 500 mg PO HS 04/11/22 04/11/22 Mirtazapine 30 mg PO HS 04/11/22 04/11/22 buPROPion HCL [Bupropion Xl] 450 mg PO DAILY 04/11/22 04/11/22 - Allergies Allergies/Adverse Reactions: Allergies Allergy/AdvReac Type Severity Reaction Status Date / Time No Known Drug Allergies Allergy Verified 04/09/23 16:17 - Social History Does the pt smoke?: No Smoking Status: Never smoker Does the pt drink ETOH?: Yes Does the pt have substance abuse?: No - Immunizations Immunizations are current?: No Immunizations: TDAP >10years/unknown - POLST Patient has POLST: No PD ED PE NORMAL - Vitals Vital signs reviewed: Yes - General General: Alert and oriented X 3 - Derm Derm: Warm and dry - Extremities Extremities: Other (Well-healed flap laceration to the dorsum of the left third finger.) - Neuro Neuro: Alert and oriented X 3 Results - Vitals Vitals: Vital Signs - 24 hr 04/09/23 16:15 Temperature 36.5 C Heart Rate 54 L Respiratory 15 Rate Blood Pressure 136/76 H O2 Saturation 100 Oxygen O2 Source Room air Procedures - Suture/staple Removal (location) - Minor Left third digit Suture/staple removal: # sutures (All), No complications PD Medical Decision Making - ED course Complexity details: considered differential, d/w patient ED course: All sutures removed. No complications. Warnings of infection and instructions on wound care given at bedside. Also counseled on how to minimize scarring. Patient counseled regarding signs and symptoms for which I believe and urgent re-evaluation would be necessary. Patient with good understanding of and agreement to plan and is comfortable going home at this time This document was made in part using voice recognition software. While efforts are made to proofread this document, sound alike and grammatical errors may occur. Departure - Departure Disposition: 01 Home, Self Care Clinical Impression: Visit for suture removal Condition: Good Instructions: ED Wound Check Sutr Remove No Infec Follow-Up: your,doctor as needed [Other] Comments: Your sutures were removed today. Follow-up with your doctor as needed for any further care. Return if you notice redness, swelling or drainage from the wound. Forms: PCP List
== END 2023-04-09 17:09 | disposition home or self-care (01) ==
LOC: ED 15:57
DX: S61.412D Laceration without foreign body of left hand, subsequent encounter (principal); X58.XXXD Exposure to other specified factors, subsequent encounter
CPT/HCPCS: 99281; 99282